=== PATIENT | female | born 1955 | race Caucasian/White ===

== ENCOUNTER 2016-08-30 05:30 | Observation (INO) | payer OTHER ==
[~2016-08-30] VITALS: Ht 162.6 cm; Wt 105.6 kg
[~2016-08-30 05:30] MED LIST: AUGM875T PO; BACT800T5 PO; DICY10 PO; REME30TA PO; ZOFR4TAB3 SL
[2016-08-30 05:40] VITALS: BP 140/59; PULSE 104; RESP 18; TEMP 98.3; O2SAT 95
[2016-08-30] MEDS ORDERED: methylPREDNISolone SOD SUCC 125 MG/2 ML VIAL IVP ONE (05:45)
[2016-08-30] MEDS ORDERED: SODIUM CHLORIDE 0.9% FLUSH 5 ML FLUSH IVF PRN (05:45)
[2016-08-30 05:54] VITALS: BP 140/59; PULSE 92; RESP 18; TEMP 98.3; O2SAT 95
[2016-08-30 06:00] LABS: AUTOMATED NEUTROPHIL # 5.4 TH/MM3 (1.8-7.7); BASOPHIL % 0.7 % (0.0-2.0); EOSINOPHIL # 0.1 TH/MM3 (0-0.4); EOSINOPHIL % 1.4 % (0.0-4.0); HEMATOCRIT 44.2 % (35.0-46.0); LYMPH % 12.3 % (9.0-44.0); LYMPHOCYTE # 0.9 TH/MM3 (1.0-4.8); MEAN CELL VOLUME 87.1 FL (80.0-100.0); MEAN CORPUSCULAR HEMOGLOBIN 29.3 PG (27.0-34.0); MEAN CORPUSCULAR HGB CONC 33.6 % (32.0-36.0); MONO % 10.4 % (0.0-8.0); NEUT % 75.2 % (16.0-70.0); PLATELET COUNT 218 TH/MM3 (150-450); RED BLOOD COUNT 5.08 MIL/MM3 (4.00-5.30); RED CELL DISTRIBUTION WIDTH 13.3 % (11.6-17.2); WHITE BLOOD COUNT 7.1 TH/MM3 (4.0-11.0)
[2016-08-30] MEDS ORDERED: FLUT1SPR5 EACH NARE (06:02)
[2016-08-30] MEDS ORDERED: NEXI20CA PO (06:02)
[2016-08-30] MEDS ORDERED: PRAV20TA PO (06:03)
[2016-08-30] MEDS ORDERED: ALBU6.7H INH (06:03)
[2016-08-30] MEDS: RESP: ALBUTEROL 2.5 MG/IPRATROPIUM 0.5 MG NEB (SCH) INH ×2 (06:06→06:07)
[2016-08-30 06:10] LABS: CHLORIDE 104 MEQ/L (98-107); POTASSIUM 3.9 MEQ/L (3.5-5.1); SODIUM (NA) 138 MEQ/L (136-145)
[2016-08-30 06:13] LABS: ANION GAP 10 MEQ/L (5-15); BICARBONATE 24.3 MEQ/L (21.0-32.0); HEMO FLAGS DIFF FINAL
[2016-08-30 06:14] LABS: BLOOD UREA NITROGEN 10 MG/DL (7-18)
[2016-08-30 06:16] LABS: ALT (GPT) 99 U/L (10-53); AST (GOT) 80 U/L (15-37)
[2016-08-30 06:17] LABS: GLOMERULAR FILTRATION RATE 63 ML/MIN (>89)
[2016-08-30 06:18] LABS: TOTAL BILIRUBIN ADULT 0.3 MG/DL (0.2-1.0)
[2016-08-30 06:19] LABS: ALKALINE PHOSPHATASE 70 U/L (45-117)
--- NOTE | 2016-08-30 06:39 | PD ---
HPI Chief Complaint: Respiratory Symptoms Time Seen by Provider: 05:40 Travel History International Travel<30 days: No Contact w/Intl Traveler<30days: No Traveled to known affect area: No History of Present Illness HPI The patient is a 60-year-old female who smokes one pack a day and has a history of asthma complains of chest tightness, cough productive of clear sputum since Sunday. She has not had any diarrhea but does have nausea and vomiting. She does have a history of irritable bowel syndrome and nausea and vomiting are not unusual for her. She used her hand held albuterol metered- dose inhaler without success yesterday. Her chest tightness feels like the usual chest tightness that she gets with asthma. Her main complaint is shortness of breath. She denies any fever. PFSH Past Medical History Asthma: Yes Anxiety: Yes Depression: Yes Cancer: No Cardiovascular Problems: No High Cholesterol: Yes Diabetes: No Diminished Hearing: No Diverticulitis: Yes Endocrine: No Gastrointestinal Disorders: Yes ("ESOPHAGEAL SPASMS", HX PANCREATITS) GERD: Yes Hiatal Hernia: Yes Immune Disorder: No Implanted Vascular Access Dvce: No Neurologic: No Reproductive: No Respiratory: Yes Immunizations Current: Yes Pancreatitis: Yes (CAUSED BY GALLSTONES) Thyroid Disease: No Tetanus Vaccination: < 5 Years ?: Not Menopausal: Yes Tubal Ligation: Yes (1983) Past Surgical History Abdominal Surgery: Yes (HERNIA UMBILICAL 2006) Cholecystectomy: Yes Gynecologic Surgery: Yes (UTERINE ABLATION) Tonsillectomy: Yes Other Surgery: Yes Social History Alcohol Use: No Tobacco Use: Yes (07/03 PPD) Substance Use: No Allergies-Medications (Allergen,Severity, Reaction): Coded Allergies: No Known Allergies (Verified , 08/30/16) Reported Meds & Prescriptions Reported Meds & Active Scripts Active Reported Pravachol (Pravastatin) 20 Mg Tab 10 Mg PO DAILY Proventil Hfa 6.7 GM Inh (Albuterol Sulfate) 90 Mcg/Act Aer 2 Puff INH Q4-6H PRN Flonase Nasal [place] (Fluticasone Nasal [place]) 50 Mcg/Act [place] 50 Mcg EACH NARE BID Nexium (Esomeprazole DR) 20 Mg Capdr 20 Mg PO DAILY Review of Systems Except as stated in HPI: all other systems reviewed are Neg Eyes: Positive: Photophobia Physical Exam Narrative GENERAL: The patient is alert, oriented 3 in moderate respiratory distress. Her vital signs show heart rate of 104, blood pressure 140/59 and oximetry 95% with respirations of 18. The temperature is 98.3. SKIN: Warm and dry. No skin rash is noted. HEAD: Atraumatic. Normocephalic. EYES: Pupils equal and round. No scleral icterus. No injection or drainage. ENT: No nasal bleeding or discharge. Mucous membranes pink and moist. NECK: Trachea midline. No JVD. There is no meningismus present. CARDIOVASCULAR: Regular rate and rhythm. No murmur appreciated. RESPIRATORY: No accessory muscle use. Diminished breath sounds are heard bilaterally. Breath sounds equal bilaterally. GASTROINTESTINAL: Abdomen soft, non-tender, nondistended. Hepatic and splenic margins not palpable. MUSCULOSKELETAL: No obvious deformities. No clubbing. No cyanosis. No edema. NEUROLOGICAL: Awake and alert. No obvious cranial nerve deficits. Motor grossly within normal limits. Normal speech. PSYCHIATRIC: Appropriate mood and affect; insight and judgment normal. Data Data Last Documented VS Vital Signs Date Time Temp Pulse Resp B/P Pulse Ox O2 Delivery O2 Flow Rate FiO2 08/30/16 05:54 98.3 92 18 140/59 95 Room Air Orders Chest, Pa & Lat (08/30/16 05:40) Complete Blood Count With Diff (08/30/16 05:41) Comprehensive Metabolic Panel (08/30/16 05:41) Urinalysis - C+S If Indicated (08/30/16 05:41) Iv Access Insert/Monitor (08/30/16 05:41) Ecg Monitoring (08/30/16 05:41) Oximetry (08/30/16 05:41) Oxygen Administration (08/30/16 05:41) Sodium Chloride 0.9% Flush (Ns Flush) (08/30/16 05:45) Methylprednisolone So Succ Inj (Solumedr (08/30/16 05:45) Albuterol-Ipratropium Neb (Duoneb Neb) (08/30/16 05:45) Influenzae A/B Antigen (08/30/16 05:44) Arterial Blood Gas (Abg) (08/30/16 ) Blood Culture (08/30/16 06:44) Labs Laboratory Tests Test 08/30/16 05:50 White Blood Count 7.1 TH/MM3 Red Blood Count 5.08 MIL/MM3 Hemoglobin 14.9 GM/DL Hematocrit 44.2 % Mean Corpuscular Volume 87.1 FL Mean Corpuscular Hemoglobin 29.3 PG Mean Corpuscular Hemoglobin 33.6 % Concent Red Cell Distribution Width 13.3 % Platelet Count 218 TH/MM3 Mean Platelet Volume 8.4 FL Neutrophils (%) (Auto) 75.2 % Lymphocytes (%) (Auto) 12.3 % Monocytes (%) (Auto) 10.4 % Eosinophils (%) (Auto) 1.4 % Basophils (%) (Auto) 0.7 % Neutrophils # (Auto) 5.4 TH/MM3 Lymphocytes # (Auto) 0.9 TH/MM3 Monocytes # (Auto) 0.7 TH/MM3 Eosinophils # (Auto) 0.1 TH/MM3 Basophils # (Auto) 0.0 TH/MM3 CBC Comment DIFF FINAL Differential Comment Sodium Level 138 MEQ/L Potassium Level 3.9 MEQ/L Chloride Level 104 MEQ/L Carbon Dioxide Level 24.3 MEQ/L Anion Gap 10 MEQ/L Blood Urea Nitrogen 10 MG/DL Creatinine 0.91 MG/DL Estimat Glomerular Filtration 63 ML/MIN Rate Random Glucose 121 MG/DL Calcium Level 8.6 MG/DL Total Bilirubin 0.3 MG/DL Aspartate Amino Transf 80 U/L (AST/SGOT) Alanine Aminotransferase 99 U/L (ALT/SGPT) Alkaline Phosphatase 70 U/L Total Protein 6.9 GM/DL Albumin 3.4 GM/DL MDM Medical Decision Making Medical Screen Exam Complete: Yes Emergency Medical Condition: Yes Medical Record Reviewed: Yes Interpretation(s) The influenza a/B antigen is negative for flu a and flu B antigen. The chest x- ray shows subsegmental basilar atelectasis without effusion or pneumothorax. The CBC is normal except for 75% neutrophils. The complete metabolic profile shows a GFR 63, AST of 80 and ALT of 99 but is otherwise normal. Differential Diagnosis COPD with acute exacerbation, acute asthma, pneumonia, bronchitis, hypoxemia Narrative Course It is now 0702 and the patient is transferred to Dr. Clarke. Baldemar Gonsales MD Aug 30, 2016 06:39
--- NOTE | 2016-08-30 06:46 | RADHPO ---
EXAM DATE/TIME: 08/30/2016 05:42 [facility] COMPARISON: CHEST PA & LAT, March 12, 2015, 7:41. INDICATIONS : Shortness of breath. MEDICAL HISTORY : Asthma. Bronchitis. SURGICAL HISTORY : None. ENCOUNTER: Initial ACUITY: 1 day PAIN SCORE: 0/10 LOCATION: Bilateral chest FINDINGS: Minimal subsegmental atelectasis at the bases. No effusion. No pneumothorax. Heart size normal. CONCLUSION: 1. Subsegmental basilar atelectasis without effusion or pneumothorax. Dawit Pierre MD on August 30, 2016 at 6:43 Board Certified Radiologist. This report was verified electronically.
[2016-08-30 07:17] LABS: BLOOD GAS BASE EXCESS -0.8 mmol/L (-2-2); BLOOD GAS CARBOXYHEMOGLOBIN 1.9 % (0-4); BLOOD GAS HCO3 23 mmol/L (22-26); BLOOD GAS METHEMOGLOBIN 1.2 % (0-2); BLOOD GAS O2 HGB SATURATION 90 % (90-100); BLOOD GAS OXYGEN CONTENT 18.8 Vol % (12.0-20.0); BLOOD GAS PCO2 38 mmHG (38-42); BLOOD GAS PO2 63 mmHG (61-120); BLOOD GAS TOTAL HGB 14.9 G/DL (12.0-16.0); CRITICAL VALUE NO; DRAW SITE LT RADIAL; FIO2 21 %; NUMBER OF ARTERIAL PUNCTURES 1; STAT YES; TEMP CORR TO 98.6; ULNAR PULSE PRESENT
[2016-08-30 07:30] LABS: BLOOD, URINE NEG (NEG); GLUCOSE,URINE NEG (NEG); KETONE, URINE TRACE mg/dL (NEG); NITRITE,URINE NEG (NEG)
[2016-08-30] MEDS ORDERED: SODIUM CHLORIDE 0.9% FLUSH 5 ML FLUSH FLUSH PRN (07:30)
[2016-08-30 07:38] LABS: METHOD OF COLLECTION CLEAN CATCH; SQUAMOUS EPITHELIAL CELL URINE > 8 /hpf (0-5); URINE COLOR YELLOW (YELLW/STRAW); WBC, URINE 0-2 /hpf (0-5)
[2016-08-30 07:39] LABS: BACTERIA, URINE RARE /hpf; COMMENT (UR) CULT NOT INDICATED; CULTURE IF INDICATED CULT NOT INDICATED
--- NOTE | 2016-08-30 07:44 | PD ---
Physical Exam Narrative Receive sign out from previous team to follow up ABG results and admit pt for observation. 60yo F with PMH of asthma but a chronic daily smoker presents to the ED with c/ o sob and cough for a few days. As per previous team, pt had decreased breath sounds and hypoxemic at 90% on RA. Pt used her albuterol pump at home with no relief. Does not have oxygen at home. Pt given duonebs x3 and methylprednisolone in the ED by previous team. Pt reevaluated at bedside at the start of my shift and states she is still very short of breath. States the treatments helped a little. Lung exam revealed crackles bilateral lower lungs. Pt is speaking in complete sentences. ABG unremarkable except that O2 sat is on the lower end at 90% on RA. Since pt is still feeling short of breath, will continue treatment and admit for observation for COPD exacerbation. Data Data Last Documented VS Vital Signs Date Time Temp Pulse Resp B/P Pulse Ox O2 Delivery O2 Flow Rate FiO2 08/30/16 05:54 98.3 92 18 140/59 95 Room Air Orders Chest, Pa & Lat (08/30/16 05:40) Complete Blood Count With Diff (08/30/16 05:41) Comprehensive Metabolic Panel (08/30/16 05:41) Urinalysis - C+S If Indicated (08/30/16 05:41) Iv Access Insert/Monitor (08/30/16 05:41) Ecg Monitoring (08/30/16 05:41) Oximetry (08/30/16 05:41) Oxygen Administration (08/30/16 05:41) Methylprednisolone So Succ Inj (Solumedr (08/30/16 05:45) Albuterol-Ipratropium Neb (Duoneb Neb) (08/30/16 05:45) Influenzae A/B Antigen (08/30/16 05:44) Arterial Blood Gas (Abg) (08/30/16 ) Blood Culture (08/30/16 06:44) Place In Observation (08/30/16 ) Vital Signs (Adult) Q4H (08/30/16 07:19) Activity Oob Ad Daniella (08/30/16 07:19) Diet Regular Basic (08/30/16 Breakfast) Sodium Chloride 0.9% Flush (Ns Flush) (08/30/16 07:30) Sodium Chloride 0.9% Flush (Ns Flush) (08/30/16 09:00) Albuterol-Ipratropium Neb (Duoneb Neb) (08/30/16 12:00) Admit Order (Ed Use Only) (08/30/16 07:38) Labs Laboratory Tests Test 08/30/16 08/30/16 08/30/16 05:50 07:08 07:27 White Blood Count 7.1 TH/MM3 Red Blood Count 5.08 MIL/MM3 Hemoglobin 14.9 GM/DL Hematocrit 44.2 % Mean Corpuscular Volume 87.1 FL Mean Corpuscular Hemoglobin 29.3 PG Mean Corpuscular Hemoglobin 33.6 % Concent Red Cell Distribution Width 13.3 % Platelet Count 218 TH/MM3 Mean Platelet Volume 8.4 FL Neutrophils (%) (Auto) 75.2 % Lymphocytes (%) (Auto) 12.3 % Monocytes (%) (Auto) 10.4 % Eosinophils (%) (Auto) 1.4 % Basophils (%) (Auto) 0.7 % Neutrophils # (Auto) 5.4 TH/MM3 Lymphocytes # (Auto) 0.9 TH/MM3 Monocytes # (Auto) 0.7 TH/MM3 Eosinophils # (Auto) 0.1 TH/MM3 Basophils # (Auto) 0.0 TH/MM3 CBC Comment DIFF FINAL Differential Comment Sodium Level 138 MEQ/L Potassium Level 3.9 MEQ/L Chloride Level 104 MEQ/L Carbon Dioxide Level 24.3 MEQ/L Anion Gap 10 MEQ/L Blood Urea Nitrogen 10 MG/DL Creatinine 0.91 MG/DL Estimat Glomerular Filtration 63 ML/MIN Rate Random Glucose 121 MG/DL Calcium Level 8.6 MG/DL Total Bilirubin 0.3 MG/DL Aspartate Amino Transf 80 U/L (AST/SGOT) Alanine Aminotransferase 99 U/L (ALT/SGPT) Alkaline Phosphatase 70 U/L Total Protein 6.9 GM/DL Albumin 3.4 GM/DL Blood Gas Puncture Site LT RADIAL Blood Gas Patient Temperature 98.6 Blood Gas HCO3 23 mmol/L Blood Gas Base Excess -0.8 mmol/L Blood Gas Oxygen Saturation 90 % Arterial Blood pH 7.40 Arterial Blood Partial 38 mmHG Pressure CO2 Arterial Blood Partial 63 mmHG Pressure O2 Arterial Blood Oxygen Content 18.8 Vol % Arterial Blood 1.9 % Carboxyhemoglobin Arterial Blood Methemoglobin 1.2 % Blood Gas Hemoglobin 14.9 G/DL Oxygen Delivery Device NONE Blood Gas Inspired Oxygen 21 % Urine Collection Type CLEAN CATCH Urine Color YELLOW Urine Turbidity CLEAR Urine pH 6.0 Urine Specific [place] 1.020 Urine Protein TRACE mg/dL Urine Glucose (UA) NEG mg/dL Urine Ketones TRACE mg/dL Urine Occult Blood NEG Urine Nitrite NEG Urine Bilirubin NEG Urine Leukocyte Esterase NEG Urine WBC 0-2 /hpf Urine Squamous Epithelial > 8 /hpf Cells Urine Bacteria RARE /hpf Microscopic Urinalysis Comment CULT NOT INDICATED Urine Collection Time 07:27 MDM Supervised Visit with ELLIS: No Diagnosis Primary Impression: COPD exacerbation Admitting Information Admitting Physician Requests: Observation Scripts Nebulizer 1 Mis Mis #1 EA .ROUTE DIRECTED Ref 0 99 months Prov:Darcy Clarke MD 08/30/16 Prednisone 20 Mg Tab20 Mg PO DIRECTED #11 TAB Ref 0 40 MG twice a day x 3 days, then 20 MG daily x 3 days, then 10 MG daily x 3 days Prov:Darcy Clarke MD 08/30/16 Ipratropium-Albuterol Neb (Duoneb)0.5-2.5 Mg/3 Ml Neb1 Ampule NEB Q4HR WHILE AWAKE NEB #120 ML Prov:Darcy Clarke MD 08/30/16 Sana Clarke DO Aug 30, 2016 07:44
[2016-08-30 08:30] VITALS: BP 150/63; PULSE 102; RESP 20; TEMP 99; O2SAT 94
[2016-08-30] MEDS ORDERED: SODIUM CHLORIDE 0.9% FLUSH 5 ML FLUSH FLUSH SCH (09:00)
[2016-08-30] MEDS: RESP: ALBUTEROL 2.5 MG/IPRATROPIUM 0.5 MG NEB (SCH) NEB ×2 (11:20→14:56)
[2016-08-30 11:21] VITALS: O2SAT 93
[2016-08-30 12:00] VITALS: BP 133/65; PULSE 108; RESP 20; TEMP 97.2; O2SAT 94
[2016-08-30] MEDS ORDERED: NEBULIZER1 MI1 ×2 (13:22→14:12)
[2016-08-30] MEDS ORDERED: IPRASOL NEB (13:22)
[2016-08-30] MEDS ORDERED: PRED20 PO (13:22)
--- NOTE | 2016-08-30 13:23 | HHI.DCPOC ---
Discharge Care Plan Diagnosis: (1) Asthma Goals to Promote Your Health * To prevent worsening of your condition and complications * To maintain your health at the optimal level Directions to Meet Your Goals Take your medications as prescribed Follow your dietary instruction Follow activity as directed Keep your appointments as scheduled Take your immunizations and boosters as scheduled If your symptoms worsen call your PCP, if no PCP go to Urgent Care Center or Emergency Room Smoking is Dangerous to Your Health. Avoid second hand smoke Call the 24-hour hour crisis hotline for domestic abuse at Darcy Clarke MD Aug 30, 2016 13:23
--- NOTE | 2016-08-30 13:27 | HHI.HP ---
[facility] Service [facility] Primary Care Physician Jolie Davies M.D. Admission Diagnosis COPD exacerbation Diagnoses: Chief Complaint: Short of breath Travel History International Travel<30 Days: No Contact w/Intl Traveler <30 Da: No Traveled to Known Affected Are: No History of Present Illness This patient is a 60-year-old female did come to the emergency room early for increased shortness of breath. She does have a history of asthma and allergies who had increased clear productive sputum for the last 3 days. There has been no fever or chills. Patient was very concerned as her home handheld inhaler was not helping. She does not have a home nebulizer. In the emergency room she received some steroids to IV as well as nebulizer treatments. She is dramatically improved. She is speaking in full sentences. There is no leukocytosis or fever. Patient is counseled to discontinue tobacco and discharge plans were discussed with the patient. Review of Systems Constitutional: DENIES: Diaphoretic episodes, Fatigue, Fever, Weight gain, Weight loss, Chills, Dizziness, Change in appetite, Night Sweats Endocrine: DENIES: Abnorml menstrual pattern, Heat/cold intolerance, Polydipsia , Polyuria, Polyphagia Eyes: DENIES: Blurred vision, Diplopia, Eye inflammation, Eye pain, Vision loss , Photosensitivity, Double Vision Ears, nose, mouth, throat: DENIES: Tinnitus, Hearing loss, Vertigo, Nasal discharge, Oral lesions, Throat pain, Hoarseness, Ear Pain, Running Nose, Epistaxis, Sinus Pain, Toothache, Odynophagia Respiratory: COMPLAINS OF: Cough, Wheezing, Sputum production, Shortness of breath, DENIES: Apneas, Snoring, Hemoptysis Cardiovascular: COMPLAINS OF: Dyspnea on Exertion, DENIES: Chest pain, Palpitations, Syncope, PND, Lower Extremity Edema, Orthopnea, Claudication Gastrointestinal: DENIES: Abdominal pain, Black stools, Bloody stools, Constipation, Diarrhea, Nausea, Vomiting, Difficulty Swallowing, Anorexia Genitourinary: DENIES: Abnormal vaginal bleeding, Dysmenorrhea, Dyspareunia, Sexual dysfunction, Urinary frequency, Urinary incontinence, Urgency, Hematuria , Dysuria, Nocturia, Vaginal discharge Musculoskeletal: DENIES: Joint pain, Muscle aches, Stiffness, Joint Swelling, Back pain, Neck pain Integumentary: DENIES: Abnormal pigmentation, Pruritus, Rash, Nail changes, Breast masses, Breast skin changes, Nipple discharge Hematologic/lymphatic: DENIES: Bruising, Lymphadenopathy Immunologic/allergic: DENIES: Eczema, Urticaria Neurologic: DENIES: Abnormal gait, Headache, Localized weakness, Paresthesias, Seizures, Speech Problems, Tremor, Poor Balance Psychiatric: DENIES: Anxiety, Confusion, Mood changes, Depression, Hallucinations, Agitation, Suicidal Ideation, Homicidal Ideation, Delusions Past Family Social History Past Medical History Asthma Tobacco dependency Hyperlipidemia Postnasal drip Dyspepsia Past Surgical History Umbilical hernia repair Uterine ablation Tonsillectomy Cholecystectomy Reported Medications Reviewed in the medical record, nothing new Allergies: Coded Allergies: No Known Allergies (Verified , 08/30/16) Active Ordered Medications Reviewed in the medical record Family History Hypertension Social History Currently smokes a pack a day for 20 years, no alcohol, lives with her family Physical Exam Vital Signs Vital Signs Date Time Temp Pulse Resp B/P Pulse Ox O2 Delivery O2 Flow Rate FiO2 08/30/16 12:00 97.2 108 20 133/65 94 08/30/16 11:21 93 21 08/30/16 08:30 99.0 102 20 150/63 94 08/30/16 08:20 103 18 94 08/30/16 05:54 98.3 92 18 140/59 95 Room Air 08/30/16 05:53 95 Room Air 08/30/16 05:46 18 95 Room Air 08/30/16 05:40 98.3 104 18 140/59 95 Physical Exam GENERAL: This is a well-nourished, well-developed patient, in no apparent distress. SKIN: No rashes, ecchymoses or lesions. Cool and dry. HEAD: Atraumatic. Normocephalic. No temporal or scalp tenderness. EYES: Pupils equal round and reactive. Extraocular motions intact. No scleral icterus. No injection or drainage. ENT: Nose without bleeding, purulent drainage or septal hematoma. Throat without erythema, tonsillar hypertrophy or exudate. Uvula midline. Airway patent. NECK: Trachea midline. No JVD or lymphadenopathy. Supple, nontender, no meningeal signs. CARDIOVASCULAR: Regular rate and rhythm without murmurs, gallops, or rubs. RESPIRATORY: Clear to auscultation. Breath sounds equal bilaterally. No wheezes , rales, or rhonchi. GASTROINTESTINAL: Abdomen soft, non-tender, nondistended. No hepato-splenomegaly , or palpable masses. No guarding. MUSCULOSKELETAL: Extremities without clubbing, cyanosis, or edema. No joint tenderness, effusion, or edema noted. No calf tenderness. Negative Homans sign bilaterally. NEUROLOGICAL: Awake and alert. Cranial nerves II through XII intact. Motor and sensory grossly within normal limits. Five out of 5 muscle strength in all muscle groups. Normal speech. Laboratory Laboratory Tests Test 08/30/16 08/30/16 08/30/16 05:50 07:08 07:27 White Blood Count 7.1 Red Blood Count 5.08 Hemoglobin 14.9 Hematocrit 44.2 Mean Corpuscular Volume 87.1 Mean Corpuscular Hemoglobin 29.3 Mean Corpuscular Hemoglobin 33.6 Concent Red Cell Distribution Width 13.3 Platelet Count 218 Mean Platelet Volume 8.4 Neutrophils (%) (Auto) 75.2 Lymphocytes (%) (Auto) 12.3 Monocytes (%) (Auto) 10.4 Eosinophils (%) (Auto) 1.4 Basophils (%) (Auto) 0.7 Neutrophils # (Auto) 5.4 Lymphocytes # (Auto) 0.9 Monocytes # (Auto) 0.7 Eosinophils # (Auto) 0.1 Basophils # (Auto) 0.0 CBC Comment DIFF FINAL Differential Comment Sodium Level 138 Potassium Level 3.9 Chloride Level 104 Carbon Dioxide Level 24.3 Anion Gap 10 Blood Urea Nitrogen 10 Creatinine 0.91 Estimat Glomerular Filtration 63 Rate Random Glucose 121 Calcium Level 8.6 Total Bilirubin 0.3 Aspartate Amino Transf 80 (AST/SGOT) Alanine Aminotransferase 99 (ALT/SGPT) Alkaline Phosphatase 70 Total Protein 6.9 Albumin 3.4 Blood Gas Puncture Site LT RADIAL Blood Gas Patient Temperature 98.6 Blood Gas HCO3 23 Blood Gas Base Excess -0.8 Blood Gas Oxygen Saturation 90 Arterial Blood pH 7.40 Arterial Blood Partial 38 Pressure CO2 Arterial Blood Partial 63 Pressure O2 Arterial Blood Oxygen Content 18.8 Arterial Blood 1.9 Carboxyhemoglobin Arterial Blood Methemoglobin 1.2 Blood Gas Hemoglobin 14.9 Oxygen Delivery Device NONE Blood Gas Inspired Oxygen 21 Urine Collection Type CLEAN CATCH Urine Color YELLOW Urine Turbidity CLEAR Urine pH 6.0 Urine Specific [place] 1.020 Urine Protein TRACE Urine Glucose (UA) NEG Urine Ketones TRACE Urine Occult Blood NEG Urine Nitrite NEG Urine Bilirubin NEG Urine Leukocyte Esterase NEG Urine WBC 0-2 Urine Squamous Epithelial > 8 Cells Urine Bacteria RARE Microscopic Urinalysis Comment CULT NOT INDICATED Urine Collection Time 07:27 Date/Time Procedure Status Source Growth 08/30/16 06:45 Aerobic Blood Culture Received Blood Peripheral Pending 08/30/16 06:45 Anaerobic Blood Culture Received Blood Peripheral Pending 08/30/16 06:00 Influenza Types A,B Antigen (TORIBIO) - Final Complete Nasal Aspirate NEGATIVE FOR FLU A AND B ANTIGEN.... Result Diagram: 08/30/16 0550 08/30/16 0550 Imaging Last Impressions Chest X-Ray 08/30/16 0540 Signed Impressions: Service Date/Time: Sunday, August 30, 2016 05:42 - CONCLUSION: 1. Subsegmental basilar atelectasis without effusion or pneumothorax. Dawit Pierre MD Assessment and Plan Problem List: (1) Asthma ICD Code: J45.909 Status: Acute Plan: Acute exacerbation of asthma. Patient with ongoing tobacco dependency. This has been addressed and patient is counseled towards abstinence and has improved remarkably with bronchodilators and steroids she'll be discharged home to follow-up with her primary care doctor Home Activity unrestricted Discontinue tobacco Diet Darcy Gracia MD Aug 30, 2016 13:27
== END 2016-08-30 15:38 | disposition home or self-care (01) ==
LOC: PHED 05:30 → PHEDA 07:41 → PH3B 08:21
PROVIDERS: ADMIT Hospitalist; ATTEND Hospitalist
DX: J44.1 Chronic obstructive pulmonary disease with (acute) exacerbation (principal); J45.901 Unspecified asthma with (acute) exacerbation; F17.210 Nicotine dependence, cigarettes, uncomplicated; R11.2 Nausea with vomiting, unspecified; E78.00 Pure hypercholesterolemia, unspecified; K57.92 Diverticulitis of intestine, part unspecified, without perforation or abscess without bleeding; K22.4 Dyskinesia of esophagus; K21.9 Gastro-esophageal reflux disease without esophagitis; K44.9 Diaphragmatic hernia without obstruction or gangrene; Z79.899 Other long term (current) drug therapy; J98.11 Atelectasis; R09.02 Hypoxemia; E78.5 Hyperlipidemia, unspecified; R09.82 Postnasal drip
CPT/HCPCS: 36600; 71020; 80053; 81001; 82805; 85025; 87040; 87804; 94640; 94664; 96374; 99284; G0378; J2930